=== PATIENT | male | born 1940 | race Caucasian/White ===

== ENCOUNTER 2024-01-15 23:46 | Emergency (ER) | payer MEDICARE ==
[~2024-01-15] VITALS: Ht 175.3 cm; Wt 103.1 kg
[2024-01-16 01:51] VITALS: BP 179/95; TEMP 96.7; O2SAT 97
== END 2024-01-16 01:56 | disposition home or self-care (01) ==
LOC: M ED 23:46
DX: T16.1XXA Foreign body in right ear, initial encounter (principal)